=== PATIENT | female | born 1985 | race Caucasian/White ===

== ENCOUNTER 2024-04-28 13:50 | Emergency (ER) | payer SELFPAY ==
[2024-04-28 14:16] VITALS: TEMP 97
[2024-04-28] MEDS ORDERED: Sodium Chloride 0.9% 1000 ML 1,000 ML ONE (14:35)
[2024-04-28] MEDS ORDERED: Zofran 4 MG/2 ML VIAL ONE (14:35)
--- NOTE | 2024-04-28 14:38 | ERPHSYRPT ---
- History of Present Illness Time Seen by Provider: 04/28/24 14:28 Source: patient Exam Limitations: no limitations Patient Subjective Stated Complaint: pt here for vaginal bleeding started yesterday, she states she is passing clots, she had a normal period 2 weeks ago Triage Nursing Assessment: pt alert, walked in, resp easy, skin w/d/p. abd soft, nontender Physician History: 38-year-old female no significant past medical history adds that she has had a tubal ligation in the past presents to our ED for evaluation of painless vaginal bleeding. Patient reports she began spotting yesterday. Patient awoke today in a "pool of blood". Patient adds that she feels nauseous. She just generally feels unwell per patient. Patient's last menstrual period was less than 2 weeks ago. Patient states she should not be on her period at this time. No obvious bruising. No vomiting no diarrhea no rash no pelvic pain no abdominal pain. Patient works as a [employer]. She denies trauma. Patient otherwise feels well. She voices no other complaints or concerns at this time. Portions of this note were created with voice recognition technology. There may be grammatical, spelling, punctuation or sound alike errors Timing/Duration: yesterday Severity: moderate Modifying Factors: Improves With: nothing Associated Symptoms: denies symptoms Allergies/Adverse Reactions: Penicillins Allergy (Verified 04/28/24 14:08) Hx Influenza Vaccination/Date Given: Yes Hx Pneumococcal Vaccination/Date Given: No Immunizations Up to Date: Yes Travel Risk - International Travel Have you traveled outside of the country in past 3 weeks: No - Emerging Infectious Disease Are you exhibiting symptoms associated with any current EIDs: No - Review of Systems Constitutional: No Symptoms, No Fever, No Chills Eyes: No Symptoms Ears, Nose, & Throat: No Symptoms Respiratory: No Symptoms, No Cough, No Dyspnea Cardiac: No Symptoms, No Chest Pain, No Edema, No Syncope Abdominal/Gastrointestinal: No Symptoms, No Abdominal Pain, No Nausea, No Vomiting, No Diarrhea Genitourinary Symptoms: No Symptoms, No Dysuria Musculoskeletal: No Symptoms, No Back Pain, No Neck Pain Skin: No Symptoms, No Rash Neurological: No Symptoms, No Dizziness, No Focal Weakness, No Sensory Changes Psychological: No Symptoms Endocrine: No Symptoms Hematologic/Lymphatic: No Symptoms Immunological/Allergic: No Symptoms All Other Systems: Reviewed and Negative - Past Medical History Pertinent Past Medical History: No - Past Surgical History Gastrointestinal: Cholecystectomy Female Surgical History: Section - Female History Hx Last Menstrual Period: 2 weeks ago Hx Now: No - Social History Smoking Status: Former smoker Exposure to second hand smoke: Yes Drug Use: none - Social Determinants of Health Will the patient participate in the screening: Yes Do you worry about a steady place to live?: Yes Do you have any problems with any of the following?: No known problems In the past 12 months,have you had to go without utilities?: No Transportation Issues: No Has anyone in your support network made you feel unsafe?: No Have you or anyone in your house had to go without enough: No - Nursing Vital Signs Nursing Vital Signs: Initial Vital Signs Temperature 97 F 04/28/24 14:14 Pulse Rate 85 04/28/24 14:14 Respiratory Rate 18 04/28/24 14:14 Blood Pressure 146/88 04/28/24 14:14 O2 Sat by Pulse Oximetry 97 04/28/24 14:14 Pain Scale Pain Intensity 0 - Physical Exam General Appearance: no apparent distress, alert Eye Exam: PERRL/EOMI, eyes nml inspection Ears, Nose, Throat Exam: normal ENT inspection, moist mucous membranes Neck Exam: normal inspection, non-tender, supple, full range of motion Respiratory Exam: normal breath sounds, lungs clear, airway intact, No respiratory distress Cardiovascular Exam: regular rate/rhythm, normal heart sounds, normal peripheral pulses Gastrointestinal/Abdomen Exam: soft, normal bowel sounds, No tenderness, No mass Pelvic Exam: normal external exam, vaginal bleeding, No adnexal mass, No cervical motion tenderness, No uterine tenderness, No vaginal discharge Back Exam: normal inspection, normal range of motion, No CVA tenderness, No vertebral tenderness Extremity Exam: normal inspection, normal range of motion, pelvis stable Neurologic Exam: alert, oriented x 3, cooperative, normal mood/affect, nml cerebellar function, nml station & gait, sensation nml, No motor deficits Skin Exam: normal color, warm, dry, No rash Lymphatic Exam: No adenopathy SpO2 Interpretation: normal SpO2: 97 O2 Delivery: Room Air - Course Nursing assessment & vital signs reviewed: Yes EKG Interpreted by Me: RATE (66), Sinus Rhythm, NORMAL AXIS, NORMAL INTERVALS, NORMAL QRS Ordered Tests: Active Orders 24 hr Category Date Time Status Ampoule Filler STAT Care 04/28/24 14:26 Active EKG-ER Only STAT Care 04/28/24 14:25 Active IV Insertion STAT Care 04/28/24 14:25 Active Pulse Oximetry (ED) STAT Care 04/28/24 14:25 Active CBC W DIFF Stat Lab 04/28/24 14:30 Completed CMP Stat Lab 04/28/24 14:30 Completed CULTURE,URINE Stat Lab 04/28/24 14:50 Received HCG QUALITATIVE, URINE Stat Lab 04/28/24 14:50 Completed PROTIME WITH INR Stat Lab 04/28/24 14:30 Completed PTT Stat Lab 04/28/24 14:30 Completed TROPONIN Q4H Lab 04/28/24 14:30 Completed TROPONIN Q4H Lab 04/28/24 18:30 Ordered TROPONIN Q4H Lab 04/28/24 22:30 Ordered UA W/RFX UR CULTURE Stat Lab 04/28/24 14:50 Completed Medication Summary Generic Name Dose Route Start Last Admin Trade Name Freq PRN Reason Stop Dose Admin Sodium Chloride 1,000 mls @ 100 mls/hr 04/28/24 14:30 04/28/24 14:40 Sodium Chloride 0.9% 1000 Ml IV 05/28/24 14:29 100 mls/hr .Q10H NATALIIA Administration Discontinued Medications Generic Name Dose Route Start Last Admin Trade Name Freq PRN Reason Stop Dose Admin Metronidazole 500 mg 04/28/24 17:45 04/28/24 17:49 Metronidazole 500 Mg Tablet PO 04/28/24 17:46 500 mg STAT ONE Administration Metronidazole Confirm 04/28/24 17:48 Metronidazole 500 Mg Tablet Administered 04/28/24 17:49 Dose 500 mg .ROUTE .STK-MED ONE Nitrofurantoin Macrocrystals 100 mg 04/28/24 16:51 04/28/24 16:56 Nitrofurantoin Macro 100 Mg Capsule PO 04/28/24 16:52 100 mg STAT ONE Administration Nitrofurantoin Macrocrystals Confirm 04/28/24 16:55 Nitrofurantoin Macro 100 Mg Capsule Administered 04/28/24 16:56 Dose 100 mg .ROUTE .STK-MED ONE Ondansetron HCl 4 mg 04/28/24 14:26 04/28/24 14:39 Ondansetron Hcl 4 Mg/2 Ml Vial IV 04/28/24 14:27 4 mg STAT ONE Administration Ondansetron HCl Confirm 04/28/24 14:35 Ondansetron Hcl 4 Mg/2 Ml Vial Administered 04/28/24 14:36 Dose 4 mg .ROUTE .STK-MED ONE Lab/Rad Data: Laboratory Result Diagrams 04/28/24 14:30 04/28/24 14:30 Laboratory Results 04/28/24 04/28/24 04/28/24 Range/Units 15:53 14:50 14:50 WBC (3.98-10.04) x10^3/uL RBC (3.93-5.22) x10^6/uL Hgb (11.2-15.7) g/dL Hct (34.1-44.9) % MCV (79.4-94.8) fL MCH (25.6-32.2) pg MCHC (32.2-35.5) g/dL RDW (11.7-14.4) % Plt Count (182-369) x10^3/uL MPV (9.4-12.3) fL Gran % (34.0-71.1) % Immature Gran % (Auto) (0.001-0.429) % Nucleat RBC Rel Count (0.00-0.2) % Eos # (Auto) (0.04-0.36) x10^3/uL Immature Gran # (Auto) (0.001-0.031) x10^3u/L Absolute Lymphs (auto) (1.18-3.74) x10^3/uL Absolute Monos (auto) (0.24-0.86) x10^3/uL Absolute Nucleated RBC (0.00-0.012) x10^3u/L Lymphocytes % (19.3-51.7) % Monocytes % (4.7-12.5) % Eosinophils % (0.7-5.8) % Basophils % (0.1-1.2) % Absolute Granulocytes (1.56-6.13) x10^3/uL Basophils # (0.01-0.08) x10^3/uL PT (9.4-12.5) SECONDS INR (0.8-3.0) APTT (25.1-36.5) SECONDS Sodium (135-145) mmol/L Potassium (3.5-5.1) mmol/L Chloride (98-107) mmol/L Carbon Dioxide (22-30) mmol/L Anion Gap (5-15) MEQ/L BUN (7-17) mg/dL Creatinine (0.52-1.04) mg/dL Estimated GFR ML/MIN Glucose (74-106) mg/dL Calcium (8.4-10.2) mg/dL Total Bilirubin (0.2-1.3) mg/dL AST (14-36) U/L ALT (0-35) U/L Alkaline Phosphatase (38-126) U/L Troponin I (0.000-0.033) ng/mL Serum Total Protein (6.3-8.2) g/dL Albumin (3.5-5.0) g/dL Urine Color (Yellow) Urine Appearance (Clear) Urine pH (4.6-8.0) Ur Specific [place] (1.005-1.030) Urine Protein (Negative) Urine Glucose (UA) (Negative) mg/dL Urine Ketones (Negative) Urine Blood (Negative) Urine Nitrite (Negative) Urine Bilirubin (Negative) Urine Urobilinogen (0.2) mg/dL Ur Leukocyte Esterase (Negative) U Hyaline Cast (Auto) (0-2) /LPF Urine Microscopic RBC (0-5) /HPF Urine Microscopic WBC (0-5) /HPF Ur Epithelial Cells (None Seen) /HPF Urine Bacteria (None Seen) /HPF Urine Culture Reflexed (NO) Urine HCG, Qual NEGATIVE (NEGATIVE) Vaginal Vicenta Group NOT DETECTED (NEGATIVE) [place] species NOT DETECTED (NEGATIVE) Chlamydia DNA Probe NOT DETECTED (NEGATIVE) N.gonorrhoeae DNA Probe NOT DETECTED (NEGATIVE) T. vaginalis (PCR) NOT DETECTED (NEGATIVE) Bact vaginosis (PCR) POSITIVE A (NEGATIVE) 04/28/24 04/28/24 04/28/24 Range/Units 14:50 14:30 14:30 WBC (3.98-10.04) x10^3/uL RBC (3.93-5.22) x10^6/uL Hgb (11.2-15.7) g/dL Hct (34.1-44.9) % MCV (79.4-94.8) fL MCH (25.6-32.2) pg MCHC (32.2-35.5) g/dL RDW (11.7-14.4) % Plt Count (182-369) x10^3/uL MPV (9.4-12.3) fL Gran % (34.0-71.1) % Immature Gran % (Auto) (0.001-0.429) % Nucleat RBC Rel Count (0.00-0.2) % Eos # (Auto) (0.04-0.36) x10^3/uL Immature Gran # (Auto) (0.001-0.031) x10^3u/L Absolute Lymphs (auto) (1.18-3.74) x10^3/uL Absolute Monos (auto) (0.24-0.86) x10^3/uL Absolute Nucleated RBC (0.00-0.012) x10^3u/L Lymphocytes % (19.3-51.7) % Monocytes % (4.7-12.5) % Eosinophils % (0.7-5.8) % Basophils % (0.1-1.2) % Absolute Granulocytes (1.56-6.13) x10^3/uL Basophils # (0.01-0.08) x10^3/uL PT 10.5 (9.4-12.5) SECONDS INR 0.96 (0.8-3.0) APTT 26.2 (25.1-36.5) SECONDS Sodium (135-145) mmol/L Potassium (3.5-5.1) mmol/L Chloride (98-107) mmol/L Carbon Dioxide (22-30) mmol/L Anion Gap (5-15) MEQ/L BUN (7-17) mg/dL Creatinine (0.52-1.04) mg/dL Estimated GFR ML/MIN Glucose (74-106) mg/dL Calcium (8.4-10.2) mg/dL Total Bilirubin (0.2-1.3) mg/dL AST (14-36) U/L ALT (0-35) U/L Alkaline Phosphatase (38-126) U/L Troponin I < 0.012 (0.000-0.033) ng/mL Serum Total Protein (6.3-8.2) g/dL Albumin (3.5-5.0) g/dL Urine Color Yellow (Yellow) Urine Appearance Cloudy A (Clear) Urine pH 6.0 (4.6-8.0) Ur Specific [place] 1.020 (1.005-1.030) Urine Protein Negative (Negative) Urine Glucose (UA) Negative (Negative) mg/dL Urine Ketones Negative (Negative) Urine Blood Moderate A (Negative) Urine Nitrite Negative (Negative) Urine Bilirubin Negative (Negative) Urine Urobilinogen 1.0 A (0.2) mg/dL Ur Leukocyte Esterase Trace A (Negative) U Hyaline Cast (Auto) NONE SEEN (0-2) /LPF Urine Microscopic RBC 51-100 A (0-5) /HPF Urine Microscopic WBC 6-10 A (0-5) /HPF Ur Epithelial Cells None Seen (None Seen) /HPF Urine Bacteria Many A (None Seen) /HPF Urine Culture Reflexed YES (NO) Urine HCG, Qual (NEGATIVE) Vaginal Vicenta Group (NEGATIVE) Vicenta species (NEGATIVE) Chlamydia DNA Probe (NEGATIVE) N.gonorrhoeae DNA Probe (NEGATIVE) T. vaginalis (PCR) (NEGATIVE) Bact vaginosis (PCR) (NEGATIVE) 04/28/24 04/28/24 Range/Units 14:30 14:30 WBC 7.1 (3.98-10.04) x10^3/uL RBC 4.14 (3.93-5.22) x10^6/uL Hgb 13.0 (11.2-15.7) g/dL Hct 38.6 (34.1-44.9) % MCV 93.2 (79.4-94.8) fL MCH 31.4 (25.6-32.2) pg MCHC 33.7 (32.2-35.5) g/dL RDW 12.8 (11.7-14.4) % Plt Count 287 (182-369) x10^3/uL MPV 10.4 (9.4-12.3) fL Gran % 68.1 (34.0-71.1) % Immature Gran % (Auto) 0.3 (0.001-0.429) % Nucleat RBC Rel Count 0.0 (0.00-0.2) % Eos # (Auto) 0.09 (0.04-0.36) x10^3/uL Immature Gran # (Auto) 0.02 (0.001-0.031) x10^3u/L Absolute Lymphs (auto) 1.59 (1.18-3.74) x10^3/uL Absolute Monos (auto) 0.52 (0.24-0.86) x10^3/uL Absolute Nucleated RBC 0.00 (0.00-0.012) x10^3u/L Lymphocytes % 22.4 (19.3-51.7) % Monocytes % 7.3 (4.7-12.5) % Eosinophils % 1.3 (0.7-5.8) % Basophils % 0.6 (0.1-1.2) % Absolute Granulocytes 4.84 (1.56-6.13) x10^3/uL Basophils # 0.04 (0.01-0.08) x10^3/uL PT (9.4-12.5) SECONDS INR (0.8-3.0) APTT (25.1-36.5) SECONDS Sodium 136 (135-145) mmol/L Potassium 3.8 (3.5-5.1) mmol/L Chloride 104 (98-107) mmol/L Carbon Dioxide 27 (22-30) mmol/L Anion Gap 8.7 (5-15) MEQ/L BUN 6 L (7-17) mg/dL Creatinine 0.50 L (0.52-1.04) mg/dL Estimated GFR 123.8 ML/MIN Glucose 73 L (74-106) mg/dL Calcium 9.1 (8.4-10.2) mg/dL Total Bilirubin 0.70 (0.2-1.3) mg/dL AST 22 (14-36) U/L ALT 14 (0-35) U/L Alkaline Phosphatase 58 (38-126) U/L Troponin I (0.000-0.033) ng/mL Serum Total Protein 7.0 (6.3-8.2) g/dL Albumin 4.4 (3.5-5.0) g/dL Urine Color (Yellow) Urine Appearance (Clear) Urine pH (4.6-8.0) Ur Specific [place] (1.005-1.030) Urine Protein (Negative) Urine Glucose (UA) (Negative) mg/dL Urine Ketones (Negative) Urine Blood (Negative) Urine Nitrite (Negative) Urine Bilirubin (Negative) Urine Urobilinogen (0.2) mg/dL Ur Leukocyte Esterase (Negative) U Hyaline Cast (Auto) (0-2) /LPF Urine Microscopic RBC (0-5) /HPF Urine Microscopic WBC (0-5) /HPF Ur Epithelial Cells (None Seen) /HPF Urine Bacteria (None Seen) /HPF Urine Culture Reflexed (NO) Urine HCG, Qual (NEGATIVE) Vaginal Vicenta Group (NEGATIVE) Vicenta species (NEGATIVE) Chlamydia DNA Probe (NEGATIVE) N.gonorrhoeae DNA Probe (NEGATIVE) T. vaginalis (PCR) (NEGATIVE) Bact vaginosis (PCR) (NEGATIVE) - Progress Progress: improved Progress Note: 38-year-old female presents to our ED for evaluation of painless vaginal bleeding. Physical exam reveals blood in the vaginal vault. Pelvic exam otherwise negative. No active bleeding during my exam. Workup reveals a urinary tract infection and bacterial vaginosis. Patient received a dose of Macrobid and Flagyl in our ED. No active bleeding. Patient resting comfortably. She denies pain. Vital stable. Hemoglobin within normal limits. No indication for further workup at this time. Will discharge home. Plan of care discussed with patient. She agrees to follow-up with her primary care doctor within 48 hours for reevaluation. Patient voices no other complaints or concerns at this time. Portions of this note were created with voice recognition technology. There may be grammatical, spelling, punctuation or sound alike errors Complexity of problem addressed is moderate acute complicated no critical care time. Complexity of data reviewed and analyzed is moderate. Test ordered chest reviewed results analyzed and correlated clinically with history and physical exam. Risk of complication and or risk of morbidity/mortality of patient management is moderate. A prescription for Macrobid and Flagyl for the patient's pharmacy. Vital stable. Time spent to discharge patient approximately 15 minutes. Plan of care established for shared decision making. No social determinants of health present to impede follow-up. Portions of this note were created with voice recognition technology. There may be grammatical, spelling, punctuation or sound alike errors 04/28/24 17:59 Counseled pt/family regarding: lab results, diagnosis, need for follow-up - Departure Departure Disposition: Home Clinical Impression: UTI (urinary tract infection), Bacterial vaginosis Condition: Stable Critical Care Time: No Referrals: DOCTOR,NO FAMILY [Primary Care Provider] - Follow up/PCP as directed Instructions: Urinary tract infections in adults, Bacterial vaginosis, Bacterial vaginosis - ED discharge instructions Prescriptions: Metronidazole 500 mg [Flagyl 500 MG] 500 mg PO BID 7 Days #14 tablet Nitrofurantoin Macro 100 mg [Macrobid 100MG Capsule] 100 mg PO BID 7 Days #14 cap
[2024-04-28] MEDS: Zofran 4 MG/2 ML VIAL IV ONE (14:39)
[2024-04-28] MEDS: Sodium Chloride 0.9% 1000 ML 1,000 ML IV SCH (14:40)
[2024-04-28 14:49] LABS: Absolute Neutrophil Ct (ANC) 4.84 x10^3/uL (1.56-6.13); BASOPHIL % 0.6 % (0.1-1.2); Basophil (Absolute #) 0.04 x10^3/uL (0.01-0.08); Eosinophil % 1.3 % (0.7-5.8); Eosinophil (Absolute #) 0.09 x10^3/uL (0.04-0.36); Hematocrit 38.6 % (34.1-44.9); IMMATURE GRAN # 0.02 x10^3u/L (0.001-0.031); IMMATURE GRAN % 0.3 % (0.001-0.429); Lymphocyte (Absolute #) 1.59 x10^3/uL (1.18-3.74); Lymphocytes % 22.4 % (19.3-51.7); Mean Cell Volume 93.2 fL (79.4-94.8); Mean Corpuscular Hemoglobin 31.4 pg (25.6-32.2); Mean Corpuscular Hgb Concent. 33.7 g/dL (32.2-35.5); Mean Platelet Volume 10.4 fL (9.4-12.3); Monocyte (Absolute #) 0.52 x10^3/uL (0.24-0.86); Monocytes % 7.3 % (4.7-12.5); Neutrophil % 68.1 % (34.0-71.1); Platelet Count 287 x10^3/uL (182-369); Red Blood Count 4.14 x10^6/uL (3.93-5.22); Red Cell Distribution Width 12.8 % (11.7-14.4); White Blood Count 7.1 x10^3/uL (3.98-10.04)
[2024-04-28 14:54] LABS: HCG URINE TEST NEGATIVE (NEGATIVE)
[2024-04-28 15:00] LABS: Appearance Cloudy (Clear); Bacteria Many /HPF (None Seen); Bilirubin Negative (Negative); Blood Moderate (Negative); Epithelial Cells None Seen /HPF (None Seen); Glucose, Urine Negative (Negative); Hyaline Casts NONE SEEN /LPF (0-2); Ketones Negative (Negative); Leukocyte Esterase Trace (Negative); Nitrite Negative (Negative); Protein,Urine Dip Negative (Negative); RBC 51-100 /HPF (0-5)
[2024-04-28 15:03] LABS: ALBUMIN 4.4 g/dL (3.5-5.0); ANION GAP 8.7 MEQ/L (5-15); BILIRUBIN,TOTAL 0.7 mg/dL (0.2-1.3); Calcium 9.1 mg/dL (8.4-10.2); Creatinine 1 0.5 mg/dL (0.52-1.04); EST GLOMERULAR FILTRATION RATE 123.8 ML/MIN; Potassium 3.8 mmol/L (3.5-5.1)
[2024-04-28 15:04] LABS: INR 0.96 (0.8-3.0); PROTIME 10.5 SECONDS (9.4-12.5); PTT 26.2 SECONDS (25.1-36.5)
[2024-04-28 16:23] LABS: CHLAMYDIA DNA NOT DETECTED (NEGATIVE); GC DNA Probe NOT DETECTED (NEGATIVE)
[2024-04-28] MEDS ORDERED: Macrobid 100MG Capsule ONE (16:55)
[2024-04-28] MEDS: Macrobid 100MG Capsule PO ONE (16:56)
[2024-04-28 16:57] LABS: Candida Group NOT DETECTED (NEGATIVE); Candida glab/krus NOT DETECTED (NEGATIVE)
[2024-04-28 17:24] VITALS: BP 110/68; PULSE 64; RESP 17
[2024-04-28 17:47] VITALS: O2SAT 97
[2024-04-28] MEDS ORDERED: Flagyl 500 MG ONE (17:48)
[2024-04-28] MEDS: Flagyl 500 MG PO ONE (17:49)
== END 2024-04-28 18:09 | disposition home or self-care (01) ==
LOC: ED 13:50
DX: N39.0 Urinary tract infection, site not specified (principal); N76.0 Acute vaginitis; N93.9 Abnormal uterine and vaginal bleeding, unspecified; R11.0 Nausea; Z79.899 Other long term (current) drug therapy; Z59.819 Housing instability, housed unspecified
CPT/HCPCS: 36415; 80053; 81001; 81025; 81515; 84484; 85025; 85610; 85730; 87077; 87086; 87186; 87491; 87591; 93005; 93041; 94760; 96360; 96361; 96374; 99284; J2405; A9270-GY

== ENCOUNTER 2025-01-04 03:27 | Emergency (ER) | payer MEDICAID ==
[2025-01-04 03:46] VITALS: TEMP 96.4
--- NOTE | 2025-01-04 03:48 | ERPHSYRPT ---
- History of Present Illness Physician History: Transported via EMS from home, the patient had awoken and had some heaviness to her left arm, and symptoms towards her back, She was going to drive her self to the emergency department when she then developed some heaviness in her left leg, she had no weakness to her upper or lower extremities, she denied having headache, she did have some pain into her shoulder, she states she was afraid that she was going to have a heart attack so she called EMS, at the time examination her symptoms improved but she still has some heaviness to her left arm, She denied history of previous cardiac disease, she denied having any numbness or weakness to her face Activities at Onset: sleep Quality: other (Heaviness) Chest Pain Radiation: arm Severity of Pain-Max: moderate Severity of Pain-Current: mild Modifying Factors: Improves With: nothing Associated Symptoms: other (heaviness to left arm and leg) Prior Chest Pain/Cardiac Workup: no prior chest pain, no prior cardiac workup Nitro Today/Relief: no nitro taken today Aspirin Treatment Today: no aspirin today Allergies/Adverse Reactions: Penicillins Allergy (Verified 04/28/24 14:08) Home Medications: No Reportable Medications [No Reported Medications] 01/04/25 [History] Hx Influenza Vaccination/Date Given: Yes Hx Pneumococcal Vaccination/Date Given: No Travel Risk - Emerging Infectious Disease Are you exhibiting symptoms associated with any current EIDs: No - Past Medical History Pertinent Past Medical History: No - Past Surgical History Gastrointestinal: Cholecystectomy Female Surgical History: Section - Female History Hx Last Menstrual Period: 2 weeks ago - Social History Smoking Status: Former smoker Exposure to second hand smoke: Yes Drug Use: none - Social Determinants of Health Will the patient participate in the screening: Yes Do you worry about a steady place to live?: Yes In the past 12 months,have you had to go without utilities?: No Transportation Issues: No Has anyone in your support network made you feel unsafe?: No Have you or anyone in your house had to go w/o enough food: No - Nursing Vital Signs Nursing Vital Signs: Initial Vital Signs Pulse Rate 70 01/04/25 03:31 Respiratory Rate 21 01/04/25 03:31 Blood Pressure 132/67 01/04/25 03:31 O2 Sat by Pulse Oximetry 97 01/04/25 03:31 Pain Scale Pain Intensity 9 - Physical Exam General Appearance: no apparent distress, alert Eye Exam: PERRL/EOMI, eyes nml inspection Ears, Nose, Throat Exam: normal ENT inspection, moist mucous membranes Neck Exam: normal inspection, non-tender, supple, full range of motion Respiratory Exam: normal breath sounds, lungs clear, No respiratory distress Cardiovascular Exam: regular rate/rhythm, normal heart sounds Gastrointestinal/Abdomen Exam: soft, No tenderness, No mass Back Exam: normal inspection, No CVA tenderness, No vertebral tenderness Extremity Exam: normal inspection, normal range of motion Neurologic Exam: alert, oriented x 3, cooperative, 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, normal mood/affect, nml cerebellar function, sensation nml, No motor deficits Skin Exam: normal color, warm, dry SpO2 Interpretation: normal - Course EKG Interpreted by Me: RATE (73), Sinus Rhythm, NORMAL AXIS, NORMAL INTERVALS, NORMAL QRS, NORMAL ST-T - Radiology Exams Chest X-ray Interpretation: Interpreted by me, No Pneumonia, No Pneumothorax, Nml Alignment, Nml Heart Size, No Infiltrates, Nml Mediastinum, Nml Soft Tissues - CT Exams Head CT Interpretation: Negative Ordered Tests: Active Orders 24 hr Category Date Time Status Document Review Attorney STAT Care 01/04/25 03:44 Active CHEST 1 VIEW (PORTABLE) Stat Exams 01/04/25 03:44 Taken HEAD WITHOUT CONTRAST [CT] Stat Exams 01/04/25 03:45 Completed CBC W DIFF Stat Lab 01/04/25 04:00 Completed CMP Stat Lab 01/04/25 04:00 Completed HCG QUALITATIVE, URINE Stat Lab 01/04/25 Ordered TROPONIN Q2H Lab 01/04/25 04:00 Completed TROPONIN Q2H Lab 01/04/25 07:45 Ordered TROPONIN Q2H Lab 01/04/25 11:45 Ordered Medication Summary Discontinued Medications Generic Name Dose Route Start Last Admin Trade Name Freq PRN Reason Stop Dose Admin Aspirin 324 mg 01/04/25 03:43 01/04/25 03:51 Aspirin 81 Mg Tab.Chew PO 01/04/25 03:44 324 mg STAT ONE Administration Aspirin Confirm 01/04/25 03:51 Aspirin 81 Mg Tab.Chew Administered 01/04/25 03:52 Dose 324 mg .ROUTE .STK-MED ONE Lab/Rad Data: Laboratory Result Diagrams 01/04/25 04:00 01/04/25 04:00 Laboratory Results 01/04/25 01/04/25 01/04/25 Range/Units 04:00 04:00 04:00 WBC 8.2 (3.98-10.04) x10^3/uL RBC 4.20 (3.93-5.22) x10^6/uL Hgb 12.8 (11.2-15.7) g/dL Hct 38.5 (34.1-44.9) % MCV 91.7 (79.4-94.8) fL MCH 30.5 (25.6-32.2) pg MCHC 33.2 (32.2-35.5) g/dL RDW 12.6 (11.7-14.4) % Plt Count 306 (182-369) x10^3/uL MPV 10.5 (9.4-12.3) fL Gran % 61.4 (34.0-71.1) % Immature Gran % (Auto) 0.2 (0.001-0.429) % Nucleat RBC Rel Count 0.0 (0.00-0.2) % Eos # (Auto) 0.08 (0.04-0.36) x10^3/uL Immature Gran # (Auto) 0.02 (0.001-0.031) x10^3u/L Absolute Lymphs (auto) 2.56 (1.18-3.74) x10^3/uL Absolute Monos (auto) 0.44 (0.24-0.86) x10^3/uL Absolute Nucleated RBC 0.00 (0.00-0.012) x10^3u/L Lymphocytes % 31.4 (19.3-51.7) % Monocytes % 5.4 (4.7-12.5) % Eosinophils % 1.0 (0.7-5.8) % Basophils % 0.6 (0.1-1.2) % Absolute Granulocytes 5.01 (1.56-6.13) x10^3/uL Basophils # 0.05 (0.01-0.08) x10^3/uL Sodium 137 (135-145) mmol/L Potassium 3.7 (3.5-5.1) mmol/L Chloride 103 (98-107) mmol/L Carbon Dioxide 25 (22-30) mmol/L Anion Gap 12.5 (5-15) MEQ/L BUN 2 L (7-17) mg/dL Creatinine 0.43 L (0.52-1.04) mg/dL Estimated GFR 127.6 ML/MIN Glucose 106 (74-106) mg/dL Calcium 9.1 (8.4-10.2) mg/dL Total Bilirubin 0.40 (0.2-1.3) mg/dL AST 23 (14-36) U/L ALT 20 (0-35) U/L Alkaline Phosphatase 75 (38-126) U/L Troponin I < 0.012 (0.000-0.033) ng/mL Serum Total Protein 6.8 (6.3-8.2) g/dL Albumin 4.1 (3.5-5.0) g/dL - Progress Progress: improved Progress Note: 01/04/25 04:55 symptoms completely resolved, discussed labs and xrays, outpatient follow up - Departure Departure Disposition: Home Clinical Impression: Panic attack Condition: Stable Critical Care Time: No Referrals: DOCTOR,NO FAMILY [Primary Care Provider, UNKNOWN] - Follow up/PCP as directed KIRSTEN SNEED [ACTIVE STAFF, FAMILY PRACTICE] - Follow up other Referral Note: 1-2 weeks Instructions: Panic attack - ED discharge instructions
[2025-01-04] MEDS ORDERED: BABY ASPIRIN 81 MG CHEW ONE (03:51)
[2025-01-04] MEDS: BABY ASPIRIN 81 MG CHEW PO ONE (03:51)
[2025-01-04 04:22] LABS: BASOPHIL % 0.6 % (0.1-1.2); Basophil (Absolute #) 0.05 x10^3/uL (0.01-0.08); Eosinophil (Absolute #) 0.08 x10^3/uL (0.04-0.36); Hematocrit 38.5 % (34.1-44.9); Hemoglobin 12.8 g/dL (11.2-15.7); IMMATURE GRAN # 0.02 x10^3u/L (0.001-0.031); IMMATURE GRAN % 0.2 % (0.001-0.429); Lymphocyte (Absolute #) 2.56 x10^3/uL (1.18-3.74); Mean Corpuscular Hemoglobin 30.5 pg (25.6-32.2); Mean Corpuscular Hgb Concent. 33.2 g/dL (32.2-35.5); Monocyte (Absolute #) 0.44 x10^3/uL (0.24-0.86); NUCLEATED RBC # 0.00 x10^3u/L (0.00-0.012); NUCLEATED RBC % 0.0 % (0.00-0.2); Platelet Count 306 x10^3/uL (182-369); Red Blood Count 4.20 x10^6/uL (3.93-5.22); White Blood Count 8.2 x10^3/uL (3.98-10.04)
[2025-01-04 04:27] LABS: Calcium 9.1 mg/dL (8.4-10.2); Carbon Dioxide 25.0 mmol/L (22-30); Creatinine 1 0.43 mg/dL (0.52-1.04); EST GLOMERULAR FILTRATION RATE 127.6 ML/MIN; Glucose 106.0 mg/dL (74-106); Potassium 3.7 mmol/L (3.5-5.1); SGOT/AST 23.0 U/L (14-36); SGPT/ALT 20.0 U/L (0-35); Total Protein 6.8 g/dL (6.3-8.2)
[2025-01-04 04:35] VITALS: PULSE 64; O2SAT 97
--- NOTE | 2025-01-04 04:35 | XRAY ---
CLINICAL HISTORY: weakness COMPARISON: None. TECHNIQUE: Multiple axial images were obtained from the skull base to the vertex without contrast. A CT scan was performed according to ALARA (as low as reasonably achievable). FINDINGS: The brain demonstrates normal morphology, attenuation, and volume for age. There is no evidence of space-occupying lesion, hemorrhage, edema, mass effect, midline shift, extra-axial collection, or hydrocephalus. The ventricles, sulci, and basal cisterns are symmetric and normal in size and configuration. Conklin-white matter differentiation is preserved. The visualized paranasal sinuses and mastoid air cells are well aerated. The orbital contents are within normal limits. The bony structures are intact. IMPRESSION: 1. No evidence of acute intracranial abnormality is demonstrated. Electronically Signed by: Shawn Simpson MD. (01/04/2025 04:33:41 EDT)
[2025-01-04 05:01] VITALS: BP 104/74; RESP 17
--- NOTE | 2025-01-04 08:59 | XRAY ---
Indication: Chest pain. Comparison: None Portable chest demonstrates normal heart, lungs, and bony thorax.
== END 2025-01-04 05:10 | disposition home or self-care (01) ==
LOC: ED 03:27
DX: F41.0 Panic disorder [episodic paroxysmal anxiety] (principal); M25.512 Pain in left shoulder; Z59.819 Housing instability, housed unspecified